=== PATIENT | male | born 1960 | race Caucasian/White ===

== ENCOUNTER 2017-05-27 12:48 | Inpatient (IN) | payer SELFPAY ==
[2017-05-27] MEDS ORDERED: methylPREDNISolone Sod Succ/PF 125 MG/2 ML VIAL ONE (13:41)
[2017-05-27 14:48] LABS: Hemoglobin 14.3 g/dL (14.0-18.0); Mean Corpuscular HGB CONC 33.5 g/dL (32.0-36.0); Mean Corpuscular Hemoglobin 31.8 pg (27.0-31.0); Mean Corpuscular Volume 94.9 fl (80.0-94.0); Mean Platelet Volume 6.7 fL (7.4-10.4); Platelet Count 240 thou/uL (130-400); RBC Distribution Width 11.8 % (11.5-14.5); Red Blood Cell (RBC) Count 4.49 mill/uL (4.70-6.10); White Blood Cell (WBC) Count 21.8 thou/uL (4.8-10.8)
[2017-05-27 15:04] LABS: Anion Gap 13 mmol/L (10-20); BUN (Urea Nitrogen) 10 mg/dL (8.4-25.7); Calc. Creatinine Clearance 0 mL/min (70-130); Calcium 8.7 mg/dL (7.8-10.44); Carbon Dioxide 25 mmol/L (22-29); Chloride 104 mmol/L (98-107); Estimated GFR-MDRD Greater than 90; Glucose 111 mg/dL (70-105); Potassium 3.7 mmol/L (3.5-5.1); Sodium 138 mmol/L (136-145)
[2017-05-27 15:06] LABS: Band 26 % (5-11); Eosinophils 1 % (0-10); Lymphocytes 6 % (21-51); MDiff Complete? YES; Metamyelocyte 2 % (0-0); Monocytes 3 % (0-10); Neutrophil 61 % (42-75); PLT Morphology Comment Appears Adequate; RBC Morphology Normal; Reactive Lymphocytes 1 % (0-10)
[2017-05-27 15:11] LABS: CKMB 0.4 ng/mL (0-6.6); Troponin I Less than 0.010 ng/mL (< 0.028)
[2017-05-27] MEDS ORDERED: Ondansetron HCl/PF 4 MG/2 ML Vial IVP PRN (16:43)
[2017-05-27] MEDS ORDERED: Ondansetron ODT 4 MG TAB PO PRN (16:43)
[2017-05-27] MEDS ORDERED: Acetaminophen 325 MG TAB PO PRN (16:43)
[2017-05-27] MEDS ORDERED: Bisacodyl 5 MG TAB PO PRN (16:43)
[2017-05-27] MEDS ORDERED: Acetaminophen 650 MG Suppository PR PRN (16:43)
[2017-05-27] MEDS ORDERED: cefTRIAXone\\ROCEPHIN 1 GM in Sodium Chloride 0.9% 100 ML IVPB SCH (16:43)
[2017-05-27 16:45] VITALS: BMI 23.3
[2017-05-27] MEDS: Sodium Chloride 0.9% 1,000 ML IV SCH (17:48)
[2017-05-27] MEDS ORDERED: Azithromycin 500 MG in Sodium Chloride 0.9% 250 ML 250 ML IVPB SCH (18:00)
--- NOTE | 2017-05-27 18:06 | HP ---
PRIMARY CARE PHYSICIAN: Ricki Rutledge. HISTORY OF PRESENT ILLNESS: This is a 57-year-old white male with a longstanding history of smoking until about 3 years ago with some chronic coughing sputum and shortness of breath, he and his amena watkins this is probably COPD, this has never been diagnosed. He reports around Thanksgiving about a mon th and a half ago he developed some increased shortness of breath, coughing productive of yellow sput um and some wheezing. This is come and gone in intensity over the last month and a half and 2 to 3 d ays ago, he developed severe worsening of cough, shortness of breath, chest pain with coughing and wo rsening of his chronic runny nose and congestion. Patient went into [facility] where he was found to have a fever of 102. Chest x-ray did not show much, just some increased interstitial m arkings in the bilateral bases fibrosis versus possible very mild infiltrate and an elevated white bl ood cell count of 17,000. The patient was given antibiotics in the [facility], azithrom ycin and ceftriaxone along with DuoNebs x2 and Solu-Medrol 125 mg and Tylenol. He is starting to fee l a little bit better. He was transferred over here for higher level of care. PAST MEDICAL HISTORY: 1. Gastroesophageal reflux disease. 2. Chronic back pain. 3. Possible recurrent longstanding diverticulitis with pain mostly in the midepigastric region. Parisa wang is diagnosed 30 years ago, but never confirmed with a colonoscopy because he not agreeable for sylvester hoffmann. PAST SURGICAL HISTORY: Left knee surgery. SOCIAL HISTORY: The patient smoked 3 packs per day for 40 years, stopped 3 years ago, now he uses [employer] tobacco one can every 2 days. No alcohol or illicit drug use. He is and lives with minoo wang who is a smoker, but smokes outside. FAMILY HISTORY: Father of a heart attack in his 60s and his grandfather had emphysema. ALLERGIES: No known drug allergies, though he may have had some vertigo from MOBIC in the past. CURRENT MEDICATIONS: None. REVIEW OF SYSTEMS: Constitutional: The patient felt a little bit warm on and off with his allergies , but had not specifically noted a fever until he came to the emergency room and had measured. No ch ills or sweats. Eyes: No double vision or blurred vision, no eye pain or drainage. ENT: He has ch ronic nasal congestion, drainage is worse recently. The throat was sore about a week ago, none curre ntly. Cardiovascular: No palpitations or racing heart. No cardiac-type chest pain. Pulmonary: Se e HPI. He does have anterior chest wall and bilateral lower rib pain from coughing. He has wheezing , chest tightness and troubled breathing. Cough is productive of copious yellow sputum. Gastrointes tinal: No current abdominal pain, no nausea or vomiting. He does have chronic diarrhea, no constipa tion, no blood in his bowel movements. Genitourinary: No dysuria or hematuria. Musculoskeletal: H e has chronic muscle aches and joint pains and back pain, but nothing specifically worse recently. S kin: No rashes or other lesions that he has noted. Neurologic: No numbness, tingling or focal weak ness. LABORATORY DATA: CBC with a white blood cell count 17.5 increased to 21.8 when he came to our emerge ncy room at 26% bands in our emergency room, 61% neutrophils. D-dimer negative. Complete metabolic panel showed mildly low potassium of 3.3 and sodium of 134 at the other emergency room. These are re solved with recheck. The remainder is normal. Negative lactic acid. Negative cardiac marker set x2 . Normal brain natriuretic peptide. IMAGING: X-ray: I did review the chest x-ray done in the emergency room along with radiologist's re port. This does show some chronic obstructive pulmonary disease along with some increase in basilar markings of fibrosis versus infiltrate, no congestive or pleural changes. ASSESSMENT AND PLAN: 1. Exacerbation of chronic obstructive pulmonary disease. 2. Pneumonia. 3. Acute hypoxic respiratory failure, improved with oxygen. We will continue patient's Rocephin and azithromycin for possible bacterial component. The chest x-ray looks more like a viral infiltrate, it is not just fibrosis, is most likely source of this would be influenza. He was flu negative at th e outside hospital; however, there are occasional negative. Chest dullness and given his high risk o f complications and presentation consistent with fluid including the high fever. We will go ahead an d start him on Tamiflu for 5 days. We will give patient DuoNebs and steroids as well and will put an d watch him on telemetry. 4. Tobacco abuse. Label Remover patient to stop the chewing tobacco and to stay away from any inhaled tob acco as this may worsen his COPD. 5. Gastrointestinal prophylaxis. Put patient on Protonix daily. 6. Deep venous thrombosis prophylaxis. Put the patient on sequential compression devices and TEDs a long with subcu Lovenox. 7. Code status. I did discuss with the patient, he is a full code. Should he be incapacitated, he states that his Mirta Vela would be his medical decision maker.
[2017-05-27] MEDS: cefTRIAXone\\ROCEPHIN 1 GM, Syringe 0.4 ML in Sterile Water 9.6 ML SLOW IVP SCH (18:26)
[2017-05-27] MEDS: Oseltamivir 75 MG CAP PO SCH (20:19)
[2017-05-27] MEDS: Azithromycin 500 MG in Sodium Chloride 0.9% 250 ML 250 ML IVPB SCH (20:19)
[2017-05-28 05:31] LABS: Anion Gap 10 mmol/L (10-20); BUN (Urea Nitrogen) 14 mg/dL (8.4-25.7); Calc. Creatinine Clearance 137 mL/min (70-130); Calcium 9.4 mg/dL (7.8-10.44); Carbon Dioxide 26 mmol/L (22-29); Chloride 107 mmol/L (98-107); Estimated GFR-MDRD Greater than 90; Glucose 147 mg/dL (70-105); Sodium 139 mmol/L (136-145)
[2017-05-28] MEDS: Sodium Chloride 0.9% 1,000 ML IV SCH ×2 (05:53→12:17)
[2017-05-28 06:02] LABS: Band 35 % (5-11); Lymphocytes 8 % (21-51); MDiff Complete? YES; Mean Corpuscular HGB CONC 32.4 g/dL (32.0-36.0); Mean Corpuscular Hemoglobin 30.7 pg (27.0-31.0); Mean Corpuscular Volume 94.6 fl (80.0-94.0); Monocytes 4 % (0-10); Neutrophil 53 % (42-75); PLT Morphology Comment Appears Adequate; Platelet Count 235 thou/uL (130-400); RBC Distribution Width 11.9 % (11.5-14.5); Red Blood Cell (RBC) Count 4.25 mill/uL (4.70-6.10); White Blood Cell (WBC) Count 25.2 thou/uL (4.8-10.8)
[2017-05-28] MEDS: Enoxaparin Sodium 40 MG/0.4 ML SYRINGE SC SCH (08:26)
[2017-05-28] MEDS: Oseltamivir 75 MG CAP PO SCH ×2 (08:26→20:47)
[2017-05-28] MEDS ORDERED: FLU VACC QS2017-18 36 mo. & older 0.5 ML SYRINGE IM ONE (09:00)
--- NOTE | 2017-05-28 13:36 | PDOC.PN ---
- Subjective Encounter Start Date: 05/28/17 Encounter Start Time: 16:00 Subjective: Cough and SOB better. No more chest pain with cough. Still a bit SOB -: and dizzy when tries to ambulate off the oxygen. - Objective Resuscitation Status: Resuscitation Status FULL:Full Resuscitation MAR Reviewed: Yes Vital Signs & Weight: Vital Signs (12 hours) Temp Pulse Resp BP Pulse Ox 05/28/17 12:40 98.0 F 62 18 142/74 H 93 L 05/28/17 08:22 97.9 F 72 18 140/75 94 L 05/28/17 08:20 97.9 F 72 18 05/28/17 07:51 95 05/28/17 07:49 61 20 94 L 05/28/17 03:37 97.6 F 74 22 H 138/78 91 L Weight Weight 186 lb I&O: 05/27/17 05/28/17 05/29/17 06:59 06:59 06:59 Intake Total 2304 Output Total 1650 Balance 654 Result Diagrams: 05/28/17 04:54 05/28/17 04:54 Phys Exam - Physical Examination Constitutional: NAD HEENT: moist MMs Respiratory: no wheezing, no rhonchi occ crackle in bases, decent air movement Cardiovascular: RRR, no significant murmur Gastrointestinal: soft, positive bowel sounds Musculoskeletal: no edema Neurological: non-focal, moves all 4 limbs Psychiatric: normal affect, A&O x 3 Dx/Plan (1) COPD exacerbation Code(s): J44.1 - CHRONIC OBSTRUCTIVE PULMONARY DISEASE W (ACUTE) EXACERBATION Status: Acute (2) Pneumonia Code(s): J18.9 - PNEUMONIA, UNSPECIFIED ORGANISM Status: Acute Qualifiers: Laterality: bilateral Lung location: lower lobe of lung (3) GERD (gastroesophageal reflux disease) Code(s): K21.9 - GASTRO-ESOPHAGEAL REFLUX DISEASE WITHOUT ESOPHAGITIS Status: Chronic Comment: on PPI - Plan cont current plan of care, continue antibiotics, respiratory therapy, DVT proph w/lovenox, DVT proph w/SCDs Likely switch to po steroid and abx tomorrow and d/c if -: sats staying up off oxygen. * . - Discharge Day Encounter end time: 16:30
[2017-05-28] MEDS: cefTRIAXone\\ROCEPHIN 1 GM, Syringe 0.4 ML in Sterile Water 9.6 ML SLOW IVP SCH (17:59)
[2017-05-28] MEDS: Azithromycin 500 MG in Sodium Chloride 0.9% 250 ML 250 ML IVPB SCH (20:47)
[2017-05-29] MEDS ORDERED: Azithromycin 250 MG TAB PO SCH (09:00)
[2017-05-29] MEDS ORDERED: Cefdinir 300 MG CAP PO SCH (09:00)
--- NOTE | 2017-05-29 09:01 | PDOC.PN ---
- Subjective Encounter Start Date: 05/29/17 Encounter Start Time: 09:30 Subjective: Patient with improved cough and SOB. Off O2 since last night. Ready to -: go home. Needs inhaler and tubing for his nebulizer. - Objective Resuscitation Status: Resuscitation Status FULL:Full Resuscitation MAR Reviewed: Yes Vital Signs & Weight: Vital Signs (12 hours) Temp Pulse Resp BP Pulse Ox 05/29/17 08:41 94 L 05/29/17 08:38 60 16 05/29/17 04:00 97.8 F 63 20 154/81 H 91 L 05/29/17 00:51 63 16 92 L Weight Weight 189 lb 3.2 oz I&O: 05/28/17 05/29/17 05/30/17 06:59 06:59 06:59 Intake Total 2304 2403 Output Total 1650 1450 Balance 654 953 Result Diagrams: 05/28/17 04:54 05/28/17 04:54 Phys Exam - Physical Examination Constitutional: NAD HEENT: moist MMs Occ wheeze, decent air movement throughout Cardiovascular: RRR, no significant murmur Gastrointestinal: soft, positive bowel sounds Neurological: non-focal, moves all 4 limbs Psychiatric: normal affect, A&O x 3 Dx/Plan (1) COPD exacerbation Code(s): J44.1 - CHRONIC OBSTRUCTIVE PULMONARY DISEASE W (ACUTE) EXACERBATION Status: Acute (2) Pneumonia Code(s): J18.9 - PNEUMONIA, UNSPECIFIED ORGANISM Status: Acute Qualifiers: Laterality: bilateral Lung location: lower lobe of lung (3) GERD (gastroesophageal reflux disease) Code(s): K21.9 - GASTRO-ESOPHAGEAL REFLUX DISEASE WITHOUT ESOPHAGITIS Status: Chronic Comment: on PPI - Plan cont current plan of care, continue antibiotics d/c home today on oral abx and steroids * . - Discharge Day Encounter end time: 10:00
[2017-05-29] MEDS ORDERED: Sodium Chloride 0.9% 10 ML ONE (09:06)
[2017-05-29] MEDS: Oseltamivir 75 MG CAP PO SCH (09:51)
[2017-05-29] MEDS: Enoxaparin Sodium 40 MG/0.4 ML SYRINGE SC SCH (09:52)
[2017-05-29 09:59] VITALS: BP 153/79; TEMP 97.2
[2017-05-29] MEDS ORDERED: predniSONE 20 MG TAB PO SCH (10:00)
--- NOTE | 2017-05-29 23:19 | DIS ---
PRIMARY CARE PHYSICIAN: Ricki carias. ADMISSION DIAGNOSES: 1. Exacerbation of chronic obstructive pulmonary disease. 2. Pneumonia. 3. Acute hypoxic respiratory failure. 4. Tobacco abuse. DISCHARGE DIAGNOSES: 1. Chronic obstructive pulmonary disease exacerbation, improved. 2. Pneumonia. 3. Gastroesophageal reflux disease. 4. Smokeless tobacco abuse. PROCEDURES: None. CONSULTATIONS: None. SUMMARY OF HOSPITAL COURSE: This is a 57-year-old white male with a longstanding history of smoking, switched to smokeless tobacco 3 years ago. He has chronic coughing with sputum and shortness of irwin ath, never been diagnosed with COPD, developed worsening about a month and a half ago and then got se verely worse 2 to 3 days prior to admission. He was found to be febrile to 102 in the [facility], some bibasilar interstitial fibrosis versus infiltrate and elevated white count. He was t ransferred to our hospital, controlled with antibiotics, DuoNebs and Solu-Medrol. The patient improv ed over the next couple of days. He was able to be weaned off the oxygen, had improved cough and imp roved shortness of breath and on the day of discharge was doing much better. DISCHARGE MANAGEMENT: Discharged to home. ACTIVITIES: As tolerated. DIET: Healthy heart, low sodium diet. FOLLOWUP: Follow up with primary care physician in 1 week. DISCHARGE MEDICATIONS: A prescription was written for albuterol for nebulizer along with the tubing, he can take nebulizing treatments every 4 hours as needed. 1. Albuterol 3 mL nebs q.4-6 hours as needed for coughing, wheezing and shortness of breath. 2. ProAir HFA 2 puffs every 4-6 hours as needed for coughing, wheezing and shortness breath. 3. Azithromycin 250 mg daily for another 3 days. 4. Omnicef 300 mg twice a day for another 3 days. 5. Prednisone 40 mg daily for another 4 days. 6. Acetaminophen as needed. 7. Prilosec 10 mg daily.
[2017-05-30] MEDS ORDERED: predniSONE 20 MG TAB PO SCH (08:00)
== END 2017-05-29 13:40 | disposition home or self-care (01) | DRG 190 ==
LOC: ERS 12:48 → 2NO 16:40
PROVIDERS: ADMIT Emergency Medicine; ATTEND Emergency Medicine
DX: J44.0 Chronic obstructive pulmonary disease with (acute) lower respiratory infection (principal); J18.9 Pneumonia, unspecified organism; J96.01 Acute respiratory failure with hypoxia; J44.1 Chronic obstructive pulmonary disease with (acute) exacerbation; K21.9 Gastro-esophageal reflux disease without esophagitis; F17.290 Nicotine dependence, other tobacco product, uncomplicated; G89.29 Other chronic pain; M54.9 Dorsalgia, unspecified
CPT/HCPCS: 36415; 80048; 85025; 90471; 90682; 90732; 94640; 96374; A4216; G0008; G0009; J0456; J0696; J1650; J2920; J2930; J7050; J7506; J7620; Q2036

== ENCOUNTER 2018-04-22 11:23 | Inpatient (IN) | payer SELFPAY ==
[2018-04-22 12:05] LABS: Troponin I Less than 0.010 ng/mL (< 0.028)
[2018-04-22] MEDS ORDERED: Senokot S 8.6-50 MG TAB PO PRN ×2 (12:06)
[2018-04-22] MEDS ORDERED: hydrALAZINE 20 MG/ML VIAL SLOW IVP PRN (12:06)
[2018-04-22] MEDS ORDERED: Diabetic Tussin 200 MG/10 ML UDCUP PO PRN (12:06)
[2018-04-22] MEDS ORDERED: Ibuprofen 200 MG TAB PO PRN (12:06)
[2018-04-22] MEDS ORDERED: cloNIDine 0.1 MG TAB PO PRN (12:06)
[2018-04-22] MEDS ORDERED: Ondansetron PF 4 MG/2 ML Vial IVP PRN ×2 (12:06)
[2018-04-22] MEDS ORDERED: Nitroglycerin 0.4 MG TAB (25 Tab Bottle) SL PRN (12:06)
[2018-04-22] MEDS ORDERED: Bisacodyl 5 MG TAB PO PRN ×2 (12:06)
[2018-04-22] MEDS ORDERED: Acetaminophen 325 MG TAB PO PRN (12:06)
[2018-04-22] MEDS ORDERED: Loperamide HCl 2 MG CAP PO PRN (12:06)
[2018-04-22] MEDS ORDERED: Bisacodyl 10 MG SUPP PR PRN (12:06)
[2018-04-22] MEDS ORDERED: Benzonatate 100 MG CAP PO PRN (12:06)
[2018-04-22] MEDS ORDERED: Calcium Carbonate 500 MG ChewTAB PO PRN (12:06)
[2018-04-22] MEDS ORDERED: traMADol HCl 50 MG TAB PO PRN (12:32)
[2018-04-22] MEDS ORDERED: Acetaminophen 325 MG TAB ONE (13:19)
[2018-04-22] MEDS ORDERED: predniSONE 20 MG TAB PO SCH ×2 (13:30→16:45)
[2018-04-22] MEDS ORDERED: cefTRIAXone\\ROCEPHIN 1 GM VIAL ONE (13:34)
[2018-04-22 15:14] LABS: Troponin I Less than 0.010 ng/mL (< 0.028)
[2018-04-22] MEDS ORDERED: predniSONE 20 MG TAB ONE (16:59)
[2018-04-22] MEDS ORDERED: traMADol HCl 50 MG TAB ONE (17:16)
--- NOTE | 2018-04-22 17:27 | HP ---
PRIMARY CARE PHYSICIAN: [facility]. CHIEF COMPLAINT: Chest pain, cough, and shortness of breath. HISTORY OF PRESENT ILLNESS: Mr. Vela is a very pleasant 58-year-old male with past medical history of known COPD from excessive tobacco abuse over the course of last 3 decades, who presented to the emergency room with abovementioned complaints. He was initially seen at [facility] for the complaints of chest pain. History was mainly obtained by the patient himself. No electronic or medical records have been reviewed. Case has been discussed with the emergency room physician, Dr. Rodriguez. According to Mr. Vela, he has been having some cough for the last week or so. He has seen his physician for this cough and was prescribed some medication to help bring it up and since then, the cough has gotten worse. He is bringing whitish yellow phlegm up. Denies any fever or chills. He has been feeling poorly with low-grade fevers at home as well. The also noticed that he has been having some low blood pressure in 1 reading this morning. His main complaint is left-sided chest pain, which he says it hurts more when he coughs or takes a big deep breath in. Denies any palpitations with it. No dizziness, lightheadedness, nausea, or vomiting. It is not associated with any diaphoresis or nausea. He has been having some shortness of breath and feels like he was going to pass out. No sick contacts. He did get pneumococcal vaccine about 2 months ago at the primary care physician's clinic, but he did not get influenza vaccine this year. Upon presentation to the emergency room, he was hemodynamically stable with a blood pressure of 128/85, saturating 94% on room air, and temperature 99.5. Because of his presentation, he received nitroglycerin, which dropped his blood pressure as low as 60s as per the ER record from [facility]. He was given IV fluids with normalization of the blood pressure. He had CT angio done because of the pleuritic nature of the chest pain, which did not show any pulmonary embolism, but did show bilateral basilar infiltrates, right greater than left. He was given azithromycin and Rocephin, and was transferred to our facility for further evaluation. His 12-lead EKG done at [facility] showed normal sinus rhythm without any acute ST or T wave changes and cardiac enzymes obtained twice since then were unremarkable. He is now being admitted to medical floor for pneumonia. He is hemodynamically stable. PAST MEDICAL HISTORY: 1. Gastroesophageal reflux disease. 2. Severe COPD. 3. Tobacco abuse. 4. Chronic back pain. 5. History of recurrent diverticulitis. PAST SURGICAL HISTORY: Left knee surgery. SOCIAL HISTORY: He has 3-pack per day smoking history for 40 years. He stopped smoking 3 years ago, but now he chews 1 can of tobacco everyday. No history of drug or alcohol abuse. He is and lives with his . They lost their 39-year-old son in a car wreck in [place] earlier this year. FAMILY HISTORY: Father of a heart attack in his 60s and grandfather had emphysema. ALLERGIES: NO KNOWN MEDICATION ALLERGIES, BUT HE DOES GET SOME VERTIGO FROM MOBIC. CURRENT MEDICATIONS: Further need to be reconciled, but as per the ER record, he is on lisinopril 10 mg daily, ProAir inhaler p.r.n., and Advair Diskus 250/50 unknown dose. REVIEW OF SYSTEMS: A 12-point review of system is done. It is negative except for those mentioned in the history and physical. His main complaint at this time is reproducible tenderness to his left anterior chest. LABORATORY EXAMINATION: CBC shows WBCs at 14.3 with 53% neutrophils and 35% band, otherwise unremarkable. Serum chemistries unremarkable. Blood sugar 114. Lipase normal. Troponin less than 0.010 x2, CK-MB normal at 0.9, and creatine kinase normal at 52. Chest x-ray upon my review shows bibasilar infiltrates and evidence of COPD. CT angio is negative for any pulmonary embolism, but shows right middle lobe and lingular pneumonia with severe COPD. No pleural effusions were noticed. PHYSICAL EXAMINATION: VITAL SIGNS: Upon presentation, blood pressure 128/85, pulse of 99, saturating 94% on room air, temperature 99.5, and respirations 24. GENERAL: The patient is uncomfortable and is leaning forward. He is holding his left chest in his hand. He says that sitting up helps with the pain somewhat. Otherwise, awake, alert, and oriented x3. He gets easily winded with conversation. No oxygen is on at this time on the patient. HEENT: Mucous membrane is moist and pink. No oropharyngeal exudate or erythema. Head is normocephalic and atraumatic. Pupils are equal and reactive to light and accommodation. Extraocular movement intact. NECK: Supple without any lymphadenopathy, JVD, or bruits. CHEST: Evaluation show poor breath sounds bilaterally and very decreased at bases, both sides. No specific wheezing is heard. No crackles heard. HEART: Rate and rhythm is regular without any murmurs, rubs, or gallops. ABDOMEN: Soft, nontender, nondistended with positive bowel sound. EXTREMITIES: Free of any cyanosis, clubbing, or edema. NEUROLOGIC: Nonfocal. SKIN: Free of any rashes or bruises. Feel warm and dry to touch. PSYCHIATRIC: Normal affect. IMPRESSION AND PLAN: 1. Chest pain. This is most likely secondary to underlying pneumonia. However, the patient definitely is at high risk for coronary artery disease and result in angina. At this time, he is not having any signs or symptoms of acute coronary syndrome. We will continue to trend serial cardiac enzyme and add a small dose of daily aspirin and check lipid panel. We will also perform a transthoracic echocardiogram to assess his baseline cardiac function. Given the fact that he has a in his family, takotsubo cardiomyopathy cannot be ruled out. We will also treat him with empiric IV antibiotics for pneumonia and add oxygen and nebulizers, and other supportive measures for the pneumonia as well. a. We will treat him with anti-inflammatory and lidocaine patch for the pain, which most likely is a musculoskeletal pain from the pneumonia and excessive coughing. 2. Community-acquired pneumonia. The patient is most susceptible because of his underlying severe chronic obstructive pulmonary disease. He will be treated with broad-spectrum IV antibiotics with azithromycin and Rocephin, and he has received the first dose in the ER. We will put him on nebulizers scheduled as well as p.r.n. along with oxygen, Mucinex and long-acting inhaled bronchodilators and steroids. Add p.o. steroids given his severe chronic obstructive pulmonary disease, though he does not have any clear evidence of exacerbation at this time. No evidence of sepsis. We will treat him with gentle IV fluids until his oral intake is adequate. 3. Severe chronic obstructive pulmonary disease. Tobacco cessation is advised and discussed with the patient, who is amenable. We will use inhalers as needed along with oral steroids and inhaled steroids at this time. 4. Code status. Full code discussed with the patient. 5. History of gastroesophageal reflux disease. We will continue with Pepcid b.i.d. while he is here and reconcile home medications. 6. Deep venous thrombosis and gastrointestinal prophylaxis. 7. Disposition. Mr. Vela is currently being admitted to the hospital with pneumonia and resultant chest pain. Estimated length of stay at this time is 2 to 3 midnights. He is hemodynamically stable. Further management will depend upon his clinical course. Job ID: [id number]
[2018-04-22 18:24] LABS: Troponin I Less than 0.010 ng/mL (< 0.028)
[2018-04-22] MEDS: Mometasone/Formoterol 120 PUFF INHALER INH SCH (19:19)
[2018-04-22] MEDS: Sodium Chloride 0.9% 1,000 ML IV SCH (20:14)
[2018-04-22] MEDS: Azithromycin 500 MG in Sodium Chloride 0.9% 250 ML 250 ML IVPB SCH (20:15)
[2018-04-22] MEDS: cefTRIAXone\\ROCEPHIN 1 GM in Sodium Chloride 0.9% 100 ML IVPB SCH (20:15)
[2018-04-22 20:18] VITALS: BMI 24.4
[2018-04-22] MEDS: Famotidine 20 MG TAB PO SCH (21:55)
[2018-04-22] MEDS: guaiFENesin ER 600 MG TAB PO SCH (21:55)
[2018-04-23] MEDS: Sodium Chloride 0.9% 1,000 ML IV SCH ×4 (03:45→20:54)
[2018-04-23 04:00] LABS: Legionella Urinary Ag Negative (Negative); Strep pneumo Urine Ag NEGATIVE (NEGATIVE)
[2018-04-23 05:52] LABS: #Lymphocytes 0.9 thou/uL (1.20-3.40); #Monocytes 0.7 thou/uL (0.11-0.59); #Neutrophils 12.2 thou/uL (1.40-6.50); %Basophils 0.3 % (0.0-1.0); %Eosinophils 0.1 % (0.0-10.0); %Lymphocytes 6.6 % (21.0-51.0); Hemoglobin 13.1 g/dL (14.0-18.0); Mean Corpuscular HGB CONC 32.3 g/dL (32.0-36.0); Mean Corpuscular Hemoglobin 30.2 pg (27.0-31.0); Mean Corpuscular Volume 93.4 fL (78.0-98.0); Mean Platelet Volume 7.3 fL (7.4-10.4); Platelet Count 213 thou/uL (130-400); RBC Distribution Width 11.8 % (11.5-14.5); Red Blood Cell (RBC) Count 4.32 mill/uL (4.70-6.10); White Blood Cell (WBC) Count 13.9 thou/uL (4.8-10.8)
[2018-04-23 06:07] LABS: Anion Gap 12 mmol/L (10-20); BUN (Urea Nitrogen) 8 mg/dL (8.4-25.7); Calc. Creatinine Clearance 138 mL/min (70-130); Calcium 9.2 mg/dL (7.8-10.44); Carbon Dioxide 21 mmol/L (22-29); Chloride 108 mmol/L (98-107); Estimated GFR-MDRD Greater than 90; Glucose 123 mg/dL (70-105); Potassium 4.2 mmol/L (3.5-5.1); Sodium 137 mmol/L (136-145)
[2018-04-23] MEDS: Mometasone/Formoterol 120 PUFF INHALER INH SCH ×2 (07:00→18:19)
[2018-04-23] MEDS: Lidocaine 5% Patch TD SCH (08:52)
[2018-04-23] MEDS: Enoxaparin Sodium 40 MG/0.4 ML SYRINGE SC SCH (08:52)
[2018-04-23] MEDS: predniSONE 20 MG TAB PO SCH (08:53)
[2018-04-23] MEDS: guaiFENesin ER 600 MG TAB PO SCH ×2 (08:54→20:54)
[2018-04-23] MEDS: Famotidine 20 MG TAB PO SCH ×2 (08:54→20:54)
[2018-04-23] MEDS: Lisinopril 10 MG TAB PO SCH (10:29)
--- NOTE | 2018-04-23 13:55 | PDOC.PN ---
- Subjective Encounter Start Date: 04/23/18 Encounter Start Time: 13:53 Subjective: feels slightly better.bringing up whitish phlegmn - Objective MAR Reviewed: Yes Vital Signs & Weight: Vital Signs (12 hours) Temp Pulse Resp BP BP Pulse Ox 04/23/18 12:00 93 L 04/23/18 11:39 98.1 F 58 L 16 112/55 L 93 L 04/23/18 08:50 92 L 04/23/18 08:47 97.6 F 60 16 120/72 92 L 04/23/18 07:01 93 L 04/23/18 06:59 61 20 93 L 04/23/18 03:09 98.5 F 67 20 115/74 92 L Weight Admit Weight 190 lb 3.2 oz Weight 190 lb 3.2 oz I&O: 04/22/18 04/23/18 04/24/18 06:59 06:59 06:59 Intake Total 1550 Output Total 1350 Balance 200 Result Diagrams: 04/23/18 05:25 04/23/18 05:24 Additional Labs: Accuchecks 04/22/18 20:59 POC Glucose 186 H Radiology Reviewed by me: Yes (ECHO-EF 55%-60%) Phys Exam - Physical Examination Constitutional: NAD HEENT: PERRLA, moist MMs, sclera anicteric, oral pharynx no lesions Neck: no nodes, no JVD, supple, full ROM Respiratory: no wheezing, no rales, no rhonchi, clear to auscultation bilateral Cardiovascular: RRR, no significant murmur Gastrointestinal: soft, non-tender, no distention, positive bowel sounds Musculoskeletal: no edema, pulses present Neurological: non-focal, normal sensation, moves all 4 limbs Psychiatric: normal affect, A&O x 3 Skin: no rash Dx/Plan (1) Pneumonia Code(s): J18.9 - PNEUMONIA, UNSPECIFIED ORGANISM Status: Acute Qualifiers: Laterality: bilateral Lung location: lower lobe of lung (2) Chest pain Code(s): R07.9 - CHEST PAIN, UNSPECIFIED Status: Acute Comment: due to PNA (3) COPD (chronic obstructive pulmonary disease) Status: Acute (4) GERD (gastroesophageal reflux disease) Code(s): K21.9 - GASTRO-ESOPHAGEAL REFLUX DISEASE WITHOUT ESOPHAGITIS Status: Chronic Comment: on PPI - Plan plan discussed w/ family, continue antibiotics, respiratory therapy, incentive spirometry, DVT proph w/SCDs clinically better -: cont ABx,steroids,nebs,dulera,O2 prn. -: Trasnfer to medical. -: tobacco cessation. -: ACS ruled out * . Review of Systems - Review of Systems Constitutional: negative: fever, chills, sweats, weakness, malaise, other ENT: negative: Ear Pain, Ear Discharge, Nose Pain, Nose Discharge, Nose Congestion, Mouth Pain, Mouth Swelling, Throat Pain, Throat Swelling, Other Respiratory: Cough, SOB with Excertion Cardiovascular: negative: chest pain, palpitations, orthopnea, paroxysmal nocturnal dyspnea, edema, light headedness, other Gastrointestinal: negative: Nausea, Vomiting, Abdominal Pain, Diarrhea, Constipation, Melena, Hematochezia, Other Genitourinary: negative: Dysuria, Frequency, Incontinence, Hematuria, Retention , Other Musculoskeletal: negative: Neck Pain, Shoulder Pain, Arm Pain, Back Pain, Hand Pain, Leg Pain, Foot Pain, Other Skin: negative: Rash, Lesions, Wilver, Bruising, Other Neurological: negative: Weakness, Numbness, Incoordination, Change in Speech, Confusion, Seizures, Other - Medications/Allergies Allergies/Adverse Reactions: Allergies Allergy/AdvReac Type Severity Reaction Status Date / Time No Known Allergies Allergy Verified 04/23/18 01:18 Medications: Current Medications Acetaminophen (Tylenol) 650 mg PO Q4H PRN PRN Reason: Headache/Fever/Mild Pain (1-3) Albuterol/Ipratropium (Duoneb) 3 ml NEB [id number] PRN PRN Reason: SOB &/or Wheezing Albuterol/Ipratropium (Duoneb) 3 ml NEB [id number] [id number] Last Admin: 04/23/18 06:59 Dose: 3 ml Benzonatate (Tessalon) 100 mg PO Q6H PRN PRN Reason: Cough Bisacodyl (Dulcolax) 10 mg PA DAILYPRN PRN PRN Reason: Constipation Bisacodyl (Dulcolax) 10 mg PO DAILYPRN PRN PRN Reason: Constipation Calcium Carbonate (Tums) 1,000 mg PO Q4H PRN PRN Reason: Heartburn or Indigestion Clonidine (Catapres) 0.1 mg PO Q4H PRN PRN Reason: SBP > _160___ Enoxaparin Sodium (Lovenox) 40 mg SC 0900 [facility] Last Admin: 04/23/18 08:52 Dose: 40 mg Famotidine (Pepcid) 20 mg PO BID [facility] Last Admin: 04/23/18 08:54 Dose: 20 mg Guaifenesin (Robitussin Sf) 200 mg PO Q4H PRN PRN Reason: Cough Guaifenesin (Mucinex) 600 mg PO Q12HR [facility] Last Admin: 04/23/18 08:54 Dose: 600 mg Hydralazine HCl (Apresoline) 10 mg SLOW IVP Q4H PRN PRN Reason: SBP > 180 and HR < 70 Azithromycin 500 mg/ Sodium (Chloride) 250 mls @ 250 mls/hr IVPB Q24HR [facility] Last Admin: 04/22/18 20:15 Dose: Not Given Ceftriaxone Sodium 1 gm/ (Sodium Chloride) 100 mls @ 200 mls/hr IVPB Q24HR [facility] Last Admin: 04/22/18 20:15 Dose: Not Given Sodium Chloride (Normal Saline 0.9%) 1,000 mls @ 75 mls/hr IV .[id number] [facility] Last Admin: 04/23/18 05:49 Dose: 1,000 mls Ibuprofen (Motrin) 400 mg PO Q4H PRN PRN Reason: Fever > 101 Lidocaine (Lidoderm 5% Patch) 1 patch TD DAILY [facility] Last Admin: 04/23/18 08:52 Dose: 1 patch Lisinopril (Zestril) 10 mg PO DAILY [facility] Last Admin: 04/23/18 10:29 Dose: 10 mg Miscellaneous Medication (Lidocaine Patch Removal) 1 each TOP HS [facility] Mometasone Furoate/Formoterol Fumar (Dulera 100 Mcg/5 Mcg Inhaler) 1 puff INH BID-RT [facility] Last Admin: 04/23/18 07:00 Dose: 1 puff Nitroglycerin (Nitrostat) 0.4 mg SL Q5MIN PRN PRN Reason: Chest Pain Ondansetron HCl (Zofran) 4 mg IVP Q6H PRN PRN Reason: Nausea/Vomiting Pantoprazole Sodium (Protonix) 40 mg PO DAILY [facility] Prednisone (Prednisone) 40 mg PO QAM-WM [facility] Last Admin: 04/23/18 08:53 Dose: 40 mg Senna/Docusate Sodium (Senokot S) 2 tab PO BID PRN PRN Reason: Constipation Tramadol HCl (Ultram) 50 mg PO Q4H PRN PRN Reason: moderate pain
[2018-04-23] MEDS: Azithromycin 500 MG in Sodium Chloride 0.9% 250 ML 250 ML IVPB SCH (14:23)
[2018-04-23] MEDS: cefTRIAXone\\ROCEPHIN 1 GM in Sodium Chloride 0.9% 100 ML IVPB SCH (15:52)
[2018-04-23] MEDS: Lidocaine Patch Removal TOP SCH (20:56)
[2018-04-24] MEDS: Mometasone/Formoterol 120 PUFF INHALER INH SCH ×2 (06:13→18:38)
[2018-04-24] MEDS: Enoxaparin Sodium 40 MG/0.4 ML SYRINGE SC SCH (08:15)
[2018-04-24] MEDS: predniSONE 20 MG TAB PO SCH (08:15)
[2018-04-24] MEDS: Famotidine 20 MG TAB PO SCH ×2 (08:16→20:41)
[2018-04-24] MEDS: guaiFENesin ER 600 MG TAB PO SCH ×2 (08:16→20:41)
[2018-04-24] MEDS: Lisinopril 10 MG TAB PO SCH (08:16)
[2018-04-24] MEDS: Lidocaine 5% Patch TD SCH (09:48)
[2018-04-24] MEDS: Sodium Chloride 0.9% 1,000 ML IV SCH (09:49)
[2018-04-24] MEDS: Azithromycin 500 MG in Sodium Chloride 0.9% 250 ML 250 ML IVPB SCH (13:27)
--- NOTE | 2018-04-24 13:45 | PDOC.PN ---
- Subjective Encounter Start Date: 04/24/18 Encounter Start Time: 13:43 Subjective: feels much better. Rib cage pain almost gone -: Coughing up blood tinged sputum - Objective MAR Reviewed: Yes Vital Signs & Weight: Vital Signs (12 hours) Temp Pulse Resp BP BP BP Pulse Ox 04/24/18 12:00 98.4 F 77 20 143/94 H 96 04/24/18 11:47 93 16 94 L 04/24/18 08:16 140/84 04/24/18 08:00 95 04/24/18 07:52 97.8 F 58 L 21 H 140/84 95 04/24/18 06:13 98 16 93 L 04/24/18 06:12 98 16 93 L Weight Admit Weight 190 lb 3.2 oz Weight 190 lb 3.2 oz I&O: 04/23/18 04/24/18 04/25/18 06:59 06:59 06:59 Intake Total 1550 1740 Output Total 1350 1425 Balance 200 315 Result Diagrams: 04/23/18 05:25 04/23/18 05:24 Additional Labs: Microbiology 04/22/18 10:11 Venous blood - Left Arm Blood Culture - Preliminary Specimen has been received and culture in progress. No Growth to date. 04/22/18 10:06 Venous blood - Right Arm Blood Culture - Preliminary Specimen has been received and culture in progress. No Growth to date. Laboratory Tests 04/22/18 04/22/18 04/22/18 11:39 14:36 17:49 Troponin I Less than 0.010 Less than 0.010 Less than 0.010 Ur L.pneumophila Ag Ur Strep pneumoniae Ag 04/23/18 04/23/18 03:42 03:42 Troponin I Ur L.pneumophila Ag Negative Ur Strep pneumoniae Ag NEGATIVE Phys Exam - Physical Examination Constitutional: NAD HEENT: PERRLA, moist MMs, sclera anicteric, oral pharynx no lesions Neck: no nodes, no JVD, supple, full ROM Respiratory: no wheezing, no rales, no rhonchi, clear to auscultation bilateral poor air entry b/l at baseline Cardiovascular: RRR, no significant murmur Gastrointestinal: soft, non-tender, no distention, positive bowel sounds Musculoskeletal: no edema, pulses present Neurological: non-focal, normal sensation, moves all 4 limbs Psychiatric: normal affect, A&O x 3 Skin: no rash Dx/Plan (1) Pneumonia Code(s): J18.9 - PNEUMONIA, UNSPECIFIED ORGANISM Status: Acute Qualifiers: Laterality: bilateral Lung location: lower lobe of lung (2) Chest pain Code(s): R07.9 - CHEST PAIN, UNSPECIFIED Status: Acute Comment: due to PNA (3) COPD (chronic obstructive pulmonary disease) Status: Acute (4) GERD (gastroesophageal reflux disease) Code(s): K21.9 - GASTRO-ESOPHAGEAL REFLUX DISEASE WITHOUT ESOPHAGITIS Status: Chronic Comment: on PPI - Plan continue antibiotics, PT/OT, respiratory therapy, incentive spirometry, out of bed/ambulate, DVT proph w/SCDs taper steroids.cont ABx.clinically better -: likley home in am -: give referral to [facility] as an OP for severe COPD * . Review of Systems - Review of Systems Constitutional: negative: fever, chills, sweats, weakness, malaise, other Respiratory: Cough Cardiovascular: negative: chest pain, palpitations, orthopnea, paroxysmal nocturnal dyspnea, edema, light headedness, other Gastrointestinal: negative: Nausea, Vomiting, Abdominal Pain, Diarrhea, Constipation, Melena, Hematochezia, Other Genitourinary: negative: Dysuria, Frequency, Incontinence, Hematuria, Retention , Other Musculoskeletal: negative: Neck Pain, Shoulder Pain, Arm Pain, Back Pain, Hand Pain, Leg Pain, Foot Pain, Other Skin: negative: Rash, Lesions, Wilver, Bruising, Other Neurological: negative: Weakness, Numbness, Incoordination, Change in Speech, Confusion, Seizures, Other - Medications/Allergies Allergies/Adverse Reactions: Allergies Allergy/AdvReac Type Severity Reaction Status Date / Time No Known Allergies Allergy Verified 04/23/18 01:18 Medications: Current Medications Acetaminophen (Tylenol) 650 mg PO Q4H PRN PRN Reason: Headache/Fever/Mild Pain (1-3) Albuterol/Ipratropium (Duoneb) 3 ml NEB [id number] PRN PRN Reason: SOB &/or Wheezing Albuterol/Ipratropium (Duoneb) 3 ml NEB [id number] CHLOE Last Admin: 04/24/18 11:47 Dose: 3 ml Benzonatate (Tessalon) 100 mg PO Q6H PRN PRN Reason: Cough Bisacodyl (Dulcolax) 10 mg NC DAILYPRN PRN PRN Reason: Constipation Bisacodyl (Dulcolax) 10 mg PO DAILYPRN PRN PRN Reason: Constipation Calcium Carbonate (Tums) 1,000 mg PO Q4H PRN PRN Reason: Heartburn or Indigestion Clonidine (Catapres) 0.1 mg PO Q4H PRN PRN Reason: SBP > _160___ Enoxaparin Sodium (Lovenox) 40 mg SC 0900 [facility] Last Admin: 04/24/18 08:15 Dose: 40 mg Famotidine (Pepcid) 20 mg PO BID [facility] Last Admin: 04/24/18 08:16 Dose: Not Given Guaifenesin (Robitussin Sf) 200 mg PO Q4H PRN PRN Reason: Cough Guaifenesin (Mucinex) 600 mg PO Q12HR [facility] Last Admin: 04/24/18 08:16 Dose: 600 mg Hydralazine HCl (Apresoline) 10 mg SLOW IVP Q4H PRN PRN Reason: SBP > 180 and HR < 70 Azithromycin 500 mg/ Sodium (Chloride) 250 mls @ 250 mls/hr IVPB Q24HR [facility] Last Admin: 04/24/18 13:27 Dose: 250 mls Ceftriaxone Sodium 1 gm/ (Sodium Chloride) 100 mls @ 200 mls/hr IVPB Q24HR [facility] Last Admin: 04/23/18 15:52 Dose: 100 mls Sodium Chloride (Normal Saline 0.9%) 1,000 mls @ 75 mls/hr IV .[id number] [facility] Last Admin: 04/24/18 09:49 Dose: 1,000 mls Ibuprofen (Motrin) 400 mg PO Q4H PRN PRN Reason: Fever > 101 Lidocaine (Lidoderm 5% Patch) 1 patch TD DAILY [facility] Last Admin: 04/24/18 09:48 Dose: 1 patch Lisinopril (Zestril) 10 mg PO DAILY [facility] Last Admin: 04/24/18 08:16 Dose: 10 mg Miscellaneous Medication (Lidocaine Patch Removal) 1 each TOP HS [facility] Last Admin: 04/23/18 20:56 Dose: Not Given Mometasone Furoate/Formoterol Fumar (Dulera 100 Mcg/5 Mcg Inhaler) 1 puff INH BID-RT [facility] Last Admin: 04/24/18 06:13 Dose: 1 puff Nitroglycerin (Nitrostat) 0.4 mg SL Q5MIN PRN PRN Reason: Chest Pain Ondansetron HCl (Zofran) 4 mg IVP Q6H PRN PRN Reason: Nausea/Vomiting Pantoprazole Sodium (Protonix) 40 mg PO DAILY [facility] Last Admin: 04/24/18 08:17 Dose: 40 mg Prednisone (Prednisone) 40 mg PO QAM-WM [facility] Last Admin: 04/24/18 08:15 Dose: 40 mg Senna/Docusate Sodium (Senokot S) 2 tab PO BID PRN PRN Reason: Constipation Tramadol HCl (Ultram) 50 mg PO Q4H PRN PRN Reason: moderate pain
[2018-04-24] MEDS ORDERED: predniSONE 20 MG TAB PO SCH (14:00)
[2018-04-24] MEDS: cefTRIAXone\\ROCEPHIN 1 GM in Sodium Chloride 0.9% 100 ML IVPB SCH (15:44)
[2018-04-24] MEDS: Lidocaine Patch Removal TOP SCH (20:41)
[2018-04-25] MEDS: Mometasone/Formoterol 120 PUFF INHALER INH SCH (06:55)
[2018-04-25] MEDS: Lisinopril 10 MG TAB PO SCH (07:46)
[2018-04-25] MEDS: Famotidine 20 MG TAB PO SCH (07:46)
[2018-04-25] MEDS: guaiFENesin ER 600 MG TAB PO SCH (07:47)
[2018-04-25] MEDS: Enoxaparin Sodium 40 MG/0.4 ML SYRINGE SC SCH (07:47)
[2018-04-25] MEDS: Lidocaine 5% Patch TD SCH (07:49)
[2018-04-25 07:50] VITALS: BP 148/88
[2018-04-25 07:57] VITALS: TEMP 97.6
[2018-04-25] MEDS ORDERED: predniSONE 20 MG TAB PO SCH ×2 (08:00)
[2018-04-25 10:37] LABS: #Eosinphils 0.1 thou/uL (0.0-0.7); #Lymphocytes 1.7 thou/uL (1.20-3.40); #Monocytes 0.8 thou/uL (0.11-0.59); #Neutrophils 9.2 thou/uL (1.40-6.50); %Basophils 0.4 % (0.0-1.0); %Eosinophils 0.9 % (0.0-10.0); %Monocytes 6.7 % (0.0-10.0); Hemoglobin 14.5 g/dL (14.0-18.0); Mean Corpuscular Hemoglobin 31.8 pg (27.0-31.0); Mean Corpuscular Volume 93.6 fL (78.0-98.0); Platelet Count 279 thou/uL (130-400); Red Blood Cell (RBC) Count 4.57 mill/uL (4.70-6.10); White Blood Cell (WBC) Count 11.8 thou/uL (4.8-10.8)
[2018-04-25 11:01] LABS: Anion Gap 10 mmol/L (10-20); BUN (Urea Nitrogen) 9 mg/dL (8.4-25.7); Calc. Creatinine Clearance 131 mL/min (70-130); Calcium 9.8 mg/dL (7.8-10.44); Carbon Dioxide 27 mmol/L (22-29); Chloride 105 mmol/L (98-107); Estimated GFR-MDRD Greater than 90; Glucose 95 mg/dL (70-105); Potassium 3.5 mmol/L (3.5-5.1); Sodium 138 mmol/L (136-145)
[2018-04-25] MEDS: Azithromycin 500 MG in Sodium Chloride 0.9% 250 ML 250 ML IVPB SCH (13:07)
[2018-04-25] MEDS: cefTRIAXone\\ROCEPHIN 1 GM in Sodium Chloride 0.9% 100 ML IVPB SCH (14:28)
--- NOTE | 2018-04-26 05:19 | DIS ---
DATE OF ADMISSION: 04/22/2018 DATE OF DISCHARGE: 04/25/2018 PRIMARY CARE PROVIDER: Nitza Padilla PA-C DISCHARGE DIAGNOSIS: Community-acquired pneumonia. CONDITION OF THE PATIENT ON THE DAY OF DISCHARGE: Stable. I assessed Mr. Vela on the day of discharge. He denies any chest pain or shortness of breath. He has occasional cough, productive of clear sputum. Vital signs are stable. S1 and S2 are heard, regular. Lungs are clear to auscultation bilaterally. DISCHARGE MEDICATIONS: 1. ProAir HFA 2 puffs every 6 hours as needed. 2. Advair 1 puff 2 times a day. 3. Lisinopril 10 mg daily. 4. Omeprazole 10 mg daily. 5. Azithromycin 250 mg daily for 4 more days. 6. Cefdinir 300 mg 2 times a day for 10 days. HOSPITAL COURSE: Mr. Vela is a pleasant 58-year-old gentleman, who was admitted to [facility] on April 22, 2018, for pneumonia. Please refer to Dr. Boateng's history and physical note dated April 22, 2018 for further details. He was treated with intravenous antibiotics and subsequently stepped down to oral antibiotics. He had a 2D echocardiogram, which showed left ventricular ejection fraction of 55% to 60%, normal-sized left atrium, normal left ventricular size, and structurally normal mitral and aortic valves. He improved clinically and is being discharged home with antibiotics at home. He has been advised to follow up with his primary care provider in 3 to 5 days. On the day of discharge, Mr. Vela has white count of 11,800, hemoglobin 14.5, platelet count 279,000. Normal chem-7. During this hospitalization, he had negative urine legionella and strep pneumoniae antigen test. Many thanks for allowing me to participate in your patient's care. Please feel free to contact me with any questions or concerns. DISCHARGE DISPOSITION: Home. TOTAL AMOUNT OF TIME SPENT COORDINATING THIS DISCHARGE: 32 minutes. Job ID: [id number]
--- NOTE | 2018-04-26 14:59 | EKG ---
Test Reason : chestpain Blood Pressure : / mmHG Vent. Rate : 076 BPM Atrial Rate : 076 BPM P-R Int : 166 ms QRS Dur : 090 ms QT Int : 372 ms P-R-T Axes : 086 038 017 degrees QTc Int : 418 ms Normal sinus rhythm Normal ECG No previous ECGs available Confirmed by SALIMA GUPTA ([id number]), rewrite editor CHANG SOTO ([id number] on 04/26/2018 2:58:45 PM Referred By: CANDY Confirmed By:SALIMA GUPTA
== END 2018-04-25 16:04 | disposition home or self-care (01) | DRG 194 ==
LOC: ERS 11:23 → ERHOLD 13:11 → 2NO 18:38 → T4-B 04-23 16:16
PROVIDERS: ADMIT Family Medicine; ATTEND Family Medicine
DX: J18.9 Pneumonia, unspecified organism (principal); J44.0 Chronic obstructive pulmonary disease with (acute) lower respiratory infection; K21.9 Gastro-esophageal reflux disease without esophagitis; G89.29 Other chronic pain; M54.9 Dorsalgia, unspecified; F17.220 Nicotine dependence, chewing tobacco, uncomplicated; Z79.899 Other long term (current) drug therapy
CPT/HCPCS: 36415; 36416; 80048; 85025; 87899; 93005; 93306; 94640; 94664; 94760; 96361; 96374; J0456; J0696; J1650; J7050; J7506; J7620

== ENCOUNTER 2024-01-16 11:22 | Observation (INO) | payer BC ==
[~2024-01-16 11:22] MED LIST: Iopamidol-370 76% 500 ML MDV (1 ML CHARGE) ONE
[2024-01-16 12:12] LABS: #Basophils 0.04 10x3/uL (0.0-0.2); #Eosinphils Less than 0.03 10x3/uL (0.0-0.7); %Basophils 0.5 % (0.0-1.0); %Eosinophils 0.3 % (0.0-10.0); %Lymphocytes 12.1 % (21.0-51.0); %Monocytes 4.6 % (0.0-10.0); %Neutrophils 81.6 % (42.0-75.0); Hematocrit 44.5 % (42.0-52.0); Hemoglobin 14.6 g/dL (14.0-18.0); Mean Corpuscular HGB CONC 32.8 g/dL (32.0-36.0); Mean Corpuscular Hemoglobin 30.4 pg (27.0-31.0); Mean Corpuscular Volume 92.5 fL (78.0-98.0); Mean Platelet Volume 9.7 fL (7.4-10.4); Platelet Count 283 10x3/uL (130-400); RBC Distribution Width 13.2 % (11.5-14.5); Red Blood Cell (RBC) Count 4.81 mill/uL (4.70-6.10)
[2024-01-16 12:27] LABS: ALT (SGPT) 10 U/L (8-55); AST (SGOT) 13 U/L (5-34); Albumin 3.4 g/dL (3.4-4.8); Alkaline Phosphatase 383 U/L (40-110); Anion Gap 14 mmol/L (10-20); BUN (Urea Nitrogen) 14 mg/dL (8.4-25.7); Bilirubin, Total 0.4 mg/dL (0.2-1.2); Calc. Creatinine Clearance 0 mL/min (70-130); Calcium 9.2 mg/dL (7.8-10.44); Carbon Dioxide 27 mmol/L (23-31); Chloride 106 mmol/L (98-107); Estimated GFR 99; Globulin 3.1 g/dL (2.4-3.5); Glucose 117 mg/dL (80-115); Potassium 3.8 mmol/L (3.5-5.1); Protein, Total 6.5 g/dL (5.8-8.1); Sodium 143 mmol/L (136-145)
[2024-01-16 12:32] LABS: Troponin I Less than 0.010 ng/mL (< 0.028)
[2024-01-16] MEDS ORDERED: Aspirin Chewable 81 MG TAB ONE (14:16)
[2024-01-16] MEDS ORDERED: Bisacodyl 5 MG TAB PO PRN (14:28)
[2024-01-16] MEDS ORDERED: Acetaminophen 325 MG TAB PO PRN (14:28)
[2024-01-16] MEDS ORDERED: traMADol HCl 50 MG TAB PO PRN (14:28)
[2024-01-16] MEDS ORDERED: Ipratropium/Albuterol 3 ML NEB NEB PRN (14:54)
[2024-01-16] MEDS: Mometasone 200 MCG/Formoterol 5 MCG 120 PUFF INHALER INH SCH (19:07)
[2024-01-16 19:09] VITALS: BMI 22.9
[2024-01-16] MEDS: Atorvastatin Calcium 40 MG TAB PO SCH (20:08)
[2024-01-17 04:04] LABS: #Basophils 0.07 10x3/uL (0.0-0.2); %Basophils 0.8 % (0.0-1.0); %Eosinophils 2.5 % (0.0-10.0); %Lymphocytes 25.1 % (21.0-51.0); %Monocytes 7.9 % (0.0-10.0); %Neutrophils 62.6 % (42.0-75.0); Hematocrit 43.2 % (42.0-52.0); Hemoglobin 14.4 g/dL (14.0-18.0); Mean Corpuscular HGB CONC 33.3 g/dL (32.0-36.0); Mean Corpuscular Volume 92.9 fL (78.0-98.0); Mean Platelet Volume 9.5 fL (7.4-10.4); Platelet Count 279 10x3/uL (130-400); RBC Distribution Width 13.4 % (11.5-14.5); Red Blood Cell (RBC) Count 4.65 mill/uL (4.70-6.10)
[2024-01-17 04:31] LABS: Anion Gap 15 mmol/L (10-20); BUN (Urea Nitrogen) 11 mg/dL (8.4-25.7); Calc. Creatinine Clearance 110 mL/min (70-130); Calcium 9.3 mg/dL (7.8-10.44); Carbon Dioxide 26 mmol/L (23-31); Cardiac Risk 2.7 (Less than 4.5); Chloride 106 mmol/L (98-107); Cholesterol 152 mg/dl (< 200 Desired); Estimated GFR 100; Glucose 78 mg/dL (80-115); HDL Cholesterol 56 mg/dL (>60 Neg Risk); LDL Cholesterol, Calculated 69 mg/dL; Potassium 3.4 mmol/L (3.5-5.1); Sodium 144 mmol/L (136-145); Triglycerides 137 mg/dL (Less than 150)
[2024-01-17] MEDS: Tamsulosin HCl 0.4 MG CAP PO SCH (08:27)
[2024-01-17] MEDS: Lisinopril 20 MG TAB PO SCH (08:27)
[2024-01-17] MEDS: Aspirin 325 mg Enteric Coated Tablet PO SCH (08:28)
[2024-01-17] MEDS: Pantoprazole DR 40 MG TAB PO SCH (08:28)
[2024-01-17] MEDS: Enoxaparin 40 MG (0.4 mL) SYRINGE SC SCH (08:28)
[2024-01-17] MEDS: traMADol HCl 50 MG TAB PO PRN (08:29)
[2024-01-17] MEDS ORDERED: Aspirin 81 mg Enteric Coated Tablet PO SCH (09:00)
[2024-01-17] MEDS: traMADol HCl 50 MG TAB PO SCH (11:09)
[2024-01-17] MEDS: Potassium Chloride 20 MEQ TAB PO SCH (11:09)
[2024-01-17] MEDS: Lidocaine 4% Patch TD SCH ×2 (11:10→11:32)
[2024-01-17 13:38] VITALS: BMI 22.9
[2024-01-17 15:42] VITALS: TEMP 97.3
[2024-01-17 16:00] VITALS: BP 126/79
[2024-01-17] MEDS ORDERED: Transdermal Patch Removal TOP SCH ×2 (21:00→23:00)
[2024-01-18] MEDS ORDERED: Lidocaine 4% Patch TD SCH (09:00)
== END 2024-01-17 18:40 | disposition home or self-care (01) ==
LOC: ERS 11:22 → ERHOLD 14:03 → 2SE 18:42
PROVIDERS: ADMIT Internal Medicine; ATTEND Family Medicine
PROC: B246ZZZ Ultrasonography of Right and Left Heart (ICD-10-PCS; principal; 2024-01-17)
DX: R29.818 Other symptoms and signs involving the nervous system (principal); R20.0 Anesthesia of skin; R20.2 Paresthesia of skin; I10 Essential (primary) hypertension; J43.9 Emphysema, unspecified; K21.9 Gastro-esophageal reflux disease without esophagitis; E78.00 Pure hypercholesterolemia, unspecified; N40.0 Benign prostatic hyperplasia without lower urinary tract symptoms; J44.9 Chronic obstructive pulmonary disease, unspecified; M54.9 Dorsalgia, unspecified; G89.29 Other chronic pain; Z79.82 Long term (current) use of aspirin; Z87.891 Personal history of nicotine dependence; Z79.899 Other long term (current) drug therapy
CPT/HCPCS: 36415; 70496; 70498; 70551; 71045; 80048; 80053; 80061; 84484; 85025; 93005; 93306; 94760; 96372; G0378; J1650; Q9967

== ENCOUNTER 2024-04-06 15:19 | Emergency (ER) | payer BC ==
[2024-04-06 17:20] LABS: #Basophils 0.06 10x3/uL (0.0-0.2); #Eosinophils Less than 0.03 10x3/uL (0.0-0.7); %Basophils 0.3 % (0.0-1.0); %Lymphocytes 3.7 % (21.0-51.0); %Monocytes 4.1 % (0.0-10.0); %Neutrophils 91.2 % (42.0-75.0); Hematocrit 46.3 % (42.0-52.0); Hemoglobin 15.2 g/dL (14.0-18.0); Mean Corpuscular HGB CONC 32.8 g/dL (32.0-36.0); Mean Corpuscular Hemoglobin 29.9 pg (27.0-31.0); Mean Corpuscular Volume 91.1 fL (78.0-98.0); Mean Platelet Volume 9.6 fL (7.4-10.4); Platelet Count 320 10x3/uL (130-400); RBC Distribution Width 12.9 % (11.5-14.5); Red Blood Cell (RBC) Count 5.08 mill/uL (4.70-6.10)
[2024-04-06 17:26] LABS: Bacteria/HPF None Seen HPF (None Seen); Bilirubin Negative (Negative); Blood, Urine Negative (Negative); CAUTI Indications for Culture Pelvic or flank pain; Clarity Clear (Clear); Glucose, Urine (Dipstick) Normal (Negative); Ketone, Urine Negative (Negative); Leukocyte Negative Leu/uL (Negative); Nitrite 1+ (Negative); Protein, Urine (Dipstick) Negative (Neg-Trace); RBC/HPF 0-3 HPF (0-3); Squamous Epithelial None Seen HPF (0-3); Urobilinogen Normal mg/dL (Less than 2); WBC/HPF 0-3 HPF (0-3)
[2024-04-06 17:29] LABS: Specific Gravity, Urine 1.004 (1.002-1.036); Urine Culture Reflex No No
[2024-04-06 18:02] LABS: ALT (SGPT) 11 U/L (8-55); AST (SGOT) 14 U/L (5-34); Albumin 3.2 g/dL (3.4-4.8); Alkaline Phosphatase 625 U/L (40-110); Anion Gap 15 mmol/L (10-20); BUN (Urea Nitrogen) 9 mg/dL (8.4-25.7); Bilirubin, Total 0.7 mg/dL (0.2-1.2); Calc. Creatinine Clearance 0 mL/min (70-130); Calcium 9.1 mg/dL (7.8-10.44); Carbon Dioxide 26 mmol/L (23-31); Chloride 101 mmol/L (98-107); Estimated GFR 97; Globulin 3.4 g/dL (2.4-3.5); Glucose 102 mg/dL (80-115); Lipase 10 U/L (8-78); Potassium 3.4 mmol/L (3.5-5.1); Protein, Total 6.6 g/dL (5.8-8.1); Sodium 139 mmol/L (136-145)
[2024-04-06 18:05] LABS: Troponin I Less than 0.010 ng/mL (< 0.028)
[2024-04-06] MEDS ORDERED: HYDROmorphone 0.5 MG/0.5 ML SYRINGE ONE (20:37)
[2024-04-06] MEDS ORDERED: Ondansetron PF 4 MG/2 ML Vial ONE (20:37)
[2024-04-06] MEDS ORDERED: Magnesium Citrate 300 ML BOT ONE (20:37)
[2024-04-06] MEDS ORDERED: Sodium Chloride 0.9% 100 ML ONE (20:37)
[2024-04-06] MEDS ORDERED: cefTRIAXone (ROCEPHIN) 1 GM VIAL ONE (20:38)
== END 2024-04-06 22:23 | disposition home or self-care (01) ==
LOC: ERS 15:19
DX: R10.13 Epigastric pain (principal); J44.9 Chronic obstructive pulmonary disease, unspecified; I10 Essential (primary) hypertension; Z87.891 Personal history of nicotine dependence
CPT/HCPCS: 36415; 71045; 74177; 76705; 80053; 81001; 83605; 83690; 84484; 85025; 87428; 93005; 96374; 96375; J0696; J2405; Q9967